=== PATIENT | female | born 1980 | race Caucasian/White ===

== ENCOUNTER 2017-09-15 08:53 | Emergency (ER) | payer OTHER ==
[2017-09-15 09:08] LABS: #Basophils 0.1 thou/uL (0.0-0.2); #Eosinphils 0.1 thou/uL (0.0-0.7); #Lymphocytes 2.4 thou/uL (1.20-3.40); #Monocytes 0.5 thou/uL (0.11-0.59); #Neutrophils 5.1 thou/uL (1.40-6.50); %Basophils 0.8 % (0.0-1.0); %Eosinophils 0.7 % (0.0-10.0); %Lymphocytes 29.1 % (21.0-51.0); %Neutrophils 63.3 % (42.0-75.0); Hemoglobin 15.5 g/dL (12.0-16.0); Mean Corpuscular HGB CONC 35.2 g/dL (32.0-36.0); Mean Corpuscular Hemoglobin 33.2 pg (27.0-31.0); Mean Corpuscular Volume 94.1 fl (81.0-99.0); Mean Platelet Volume 6.2 fL (7.4-10.4); Platelet Count 262 thou/uL (130-400); RBC Distribution Width 11.1 % (11.5-14.5); Red Blood Cell (RBC) Count 4.69 mill/uL (4.20-5.40); White Blood Cell (WBC) Count 8.1 thou/uL (4.8-10.8)
[2017-09-15] MEDS ORDERED: Ketorolac Tromethamine 30 MG/ML VIAL ONE (09:12)
[2017-09-15 09:26] LABS: ALT (SGPT) 19 U/L (8-55); AST (SGOT) 16 U/L (5-34); Albumin 4.5 g/dL (3.5-5.0); Alkaline Phosphatase 53 U/L (40-150); Anion Gap 16 mmol/L (10-20); BUN (Urea Nitrogen) 15 mg/dL (7.0-18.7); Bilirubin, Total 0.6 mg/dL (0.2-1.2); Calc. Creatinine Clearance 0 mL/min (70-130); Calcium 9.1 mg/dL (7.8-10.44); Carbon Dioxide 23 mmol/L (22-29); Chloride 103 mmol/L (98-107); Estimated GFR-MDRD 81; Globulin 2.9 g/dL (2.4-3.5); Glucose 107 mg/dL (70-105); Lipase 10 U/L (8-78); Potassium 3.8 mmol/L (3.5-5.1); Protein, Total 7.4 g/dL (6.0-8.3); Sodium 138 mmol/L (136-145)
[2017-09-15 09:27] LABS: CKMB 0.7 ng/mL (0-6.6); Troponin I Less than 0.010 ng/mL (< 0.028)
--- NOTE | 2017-09-15 16:01 | RAD ---
PORTABLE CHEST: DATE: 09/15/17. FINDINGS: Comparison is made with an 08/13/10 study. The heart is normal in size. There is no major lobar infiltrate or effusion. There is a very minima l patchy lingular density near the cardiac apex. I cannot tell if this is scarring or perhaps a mini mal infiltrate. Correlate with clinical symptoms and consider a followup study if the patient has si gns or symptoms of pneumonia. The chest otherwise appears normal. IMPRESSION: Equivocal patchy area in the lingua on the left. CODE T POS: HOME
== END 2017-09-15 10:06 | disposition home or self-care (01) ==
LOC: BURERS 08:53
DX: S54.02XA Injury of ulnar nerve at forearm level, left arm, initial encounter (principal); R07.89 Other chest pain; I10 Essential (primary) hypertension; F17.210 Nicotine dependence, cigarettes, uncomplicated
CPT/HCPCS: 71010; 80053; 82553; 83690; 84484; 85025; 85379; 93005; 94760; 96374; J1885

== ENCOUNTER 2018-02-05 11:12 | Emergency (ER) | payer OTHER ==
--- NOTE | 2018-02-05 14:28 | RAD ---
RIGHT HAND RADIOGRAPHS THREE VIEWS: Date: 02-05-18 Provided Clinical History: Right hand pain status post injury. FINDINGS: Obliquely oriented not significantly displaced fracture involving the fifth proximal phalanx. No td tional fracture is evident with limitations in evaluating the fourth proximal phalanx due to patient jewelry. IMPRESSION: Fifth proximal phalangeal fracture. POS: [facility]
== END 2018-02-05 13:20 | disposition home or self-care (01) ==
LOC: BURERS 11:12
DX: S62.617A Displaced fracture of proximal phalanx of left little finger, initial encounter for closed fracture (principal); I10 Essential (primary) hypertension; F17.210 Nicotine dependence, cigarettes, uncomplicated; W19.XXXA Unspecified fall, initial encounter
CPT/HCPCS: 29125

== ENCOUNTER 2018-03-02 14:11 | Outpatient (CLI) | payer OTHER ==
--- NOTE | 2018-03-02 20:24 | RAD ---
RIGHT FIFTH DIGIT THREE VIEWS: 03/02/2018 COMPARISON: 02/05/2018 FINDINGS: The oblique fracture of the proximal phalanx shows no adverse displacement in the interval. Minimal amounts of callus are seen as of yet. IMPRESSION: Proximal phalanx fracture, only minimally changed since 02/05/2018. POS: HOME
== END 2018-03-02 14:12 | disposition home or self-care (01) ==
LOC: BURRAD 14:11
PROVIDERS: ATTEND Physician Assistant
DX: S62.646D Nondisplaced fracture of proximal phalanx of right little finger, subsequent encounter for fracture with routine healing (principal)